=== PATIENT | male | born 1970 | race Caucasian/White ===

== ENCOUNTER 2024-02-13 15:24 | Emergency (ER) | payer OTHER ==
[~2024-02-13] VITALS: Ht 175.3 cm; Wt 81.6 kg
[2024-02-13] MEDS ORDERED: GUAIFENESIN 200 MG/10 ML BLIST.PACK PO STA (16:30)
[2024-02-13] MEDS ORDERED: METHYLPREDNISOLONE SOD SUCC 125 MG VIAL IV STA (16:30)
[2024-02-13] MEDS ORDERED: levoFLOXacin IN DEXTROSE 5 % 5 MG/ML PIGGYBAG IV STA (16:30)
[2024-02-13 19:09] LABS: ABG PH 7.421 (7.35-7.45); ABG PO2 73.2 mmHg (80-100); BICARBONATE 22.9 mmol/l (23-25); SaO2 94.8 %; allen test SATISFACTORY; o2 21 %; puncture site RADIAL LEFT
[2024-02-13] MEDS ORDERED: BUDESONIDE 0.5 MG/2 ML AMPUL.NEB IH STA (19:10)
[2024-02-13] MEDS ORDERED: LEVALBUTEROL HCL 1.25 MG/3 ML SOLUTION IH SCH (19:15)
[2024-02-13] MEDS ORDERED: IPRATROPIUM BROMIDE 0.5 MG/2.5 ML AMPUL.NEB IH SCH (19:15)
== END 2024-02-13 20:42 | disposition home or self-care (01) ==
LOC: ER 15:25
PROVIDERS: General Practice
DX: R53.81 Other malaise (principal); J40 Bronchitis, not specified as acute or chronic; R05.9 Cough, unspecified; Z88.0 Allergy status to penicillin